=== PATIENT | female | born 1975 | race Caucasian/White ===

== ENCOUNTER 2017-01-18 14:18 | Inpatient (IN) | payer OTHER ==
[~2017-01-18] VITALS: Ht 165.1 cm; Wt 85.1 kg
[~2017-01-18 14:18] MED LIST: FOLI-49 PO; PREN-39 PO
[2017-01-18 15:14] VITALS: BP 187/98; PULSE 98; Ht 165.1 cm; Wt 85.1 kg
[2017-01-18 15:35] LABS: ADD SCAN DIFF NO
[2017-01-18 15:40] LABS: BASOPHILS % 0.3 % (0.0-2.0); EOSINOPHILS % 0.2 % (0.0-7.0); HEMATOCRIT 32.6 % (37.0-47.0); HEMOGLOBIN 11.6 g/dl (12.0-16.0); LYMPHOCYTES # 1.6 10^3/ul (0.8-2.9); LYMPHOCYTES % 18.9 % (15.0-51.0); MEAN CORPUSCULAR HEMOGLOBIN 33.3 pg (29.0-33.0); MEAN CORPUSCULAR HGB CONC 35.6 g/dl (32.0-37.0); MEAN CORPUSCULAR VOLUME 93.7 fl (82.0-101.0); MEAN PLATELET VOLUME 11.1 fl (7.4-10.4); MONOCYTE # 0.5 10^3/ul (0.3-0.9); MONOCYTES % 5.8 % (0.0-11.0); NEUTROPHIL # 6.4 10^3/ul (1.6-7.5); NEUTROPHILS % 74.5 % (39.0-77.0); PLATELET COUNT 223 10^3/UL (140-415); RED BLOOD COUNT 3.48 10^6/ul (4.20-5.40); RED CELL DISTRIBUTION WIDTH 13.7 % (11.5-14.5); WHITE BLOOD COUNT 8.6 10^3/ul (4.8-10.8)
[2017-01-18 15:45] LABS: ADD UMIC YES; UR ASCORBIC ACID 40 mg/dL (NEGATIVE); UR BACTERIA FEW /HPF (NONE SEEN); UR BILIRUBIN (Dip) NEGATIVE (NEGATIVE); UR BLOOD (Dip) NEGATIVE (NEGATIVE); UR CLARITY SLIGHTLY CLOUDY (CLEAR); UR COLOR AMBER (YELLOW); UR GLUCOSE (Dip) NEGATIVE (NEGATIVE); UR KETONES (Dip) NEGATIVE (NEGATIVE); UR LEUKOCYTE ESTERASE (Dip) 1+ Leu/ul (NEGATIVE); UR MUCUS FEW /HPF (NONE SEEN); UR NITRITE (Dip) NEGATIVE (NEGATIVE); UR RBC 8 /HPF (0-5); UR SPECIFIC GRAVITY (Dip) 1.025 (1.003-1.030); UR SQUAMOUS EPITHELIAL CELL FEW /HPF (FEW); UR TOTAL PROTEIN (Dip) 1+ mg/dl (NEGATIVE); UR UROBILINOGEN (Dip) 1+ mg/dL (NEGATIVE)
[2017-01-18 15:55] LABS: INR 0.91; PARTIAL THROMBOPLASTIN TIME 25.7 Sec (25.0-35.0); PROTIME 12.3 Sec (12.2-14.2)
[2017-01-18 15:59] LABS: ALBUMIN 3.9 g/dl (3.3-4.9); ALBUMIN/GLOBULIN RATIO 1.39; BILIRUBIN,INDIRECT 0.3 mg/dl (0-1.1); BILIRUBIN,TOTAL 0.3 mg/dl (0.2-1.3); CALCIUM 9.1 mg/dl (8.4-10.2); CREATININE 0.92 mg/dl (0.44-1.00); POTASSIUM 4.1 mmol/L (3.5-5.1); TOTAL PROTEIN 6.7 g/dl (6.1-8.1); URIC ACID 6.6 mg/dl (3.1-7.9)
--- NOTE | 2017-01-18 16:05 | RADRPT ---
PROCEDURE: OB ultrasound for biophysical profile CLINICAL INDICATION: Biophysical profile. . TECHNIQUE: Multiple sonographic images of the pelvis were obtained. Transabdominal views are obta ined. COMPARISON: 10/02/2016 FINDINGS: Single intrauterine gestation. Presentation: Cephalic. Placenta: Anterior. No evidence of placental abruption. No evidence of placenta previa. breathing movement = 2/2 tone = 2/2 motion = 2/2 JANETH = 2/2 JANETH = 11.4 cm heart rate: 144 beats per minute IMPRESSION: Single intrauterine gestation. Biophysical profile 03/06 RPTAT: AADD .Lito Peña MD, MD Date Time Electronically viewed and signed by .Lito Peña MD, on 01/18/2017 16:05 .B/
--- NOTE | 2017-01-18 16:11 | RADRPT ---
PROCEDURE: Obstetrical ultrasound greater than 14 weeks CLINICAL INDICATION: induced hypertension TECHNIQUE: Real time sonographic imaging of the gravid uterus is performed transabdominally and mu ltiple static fagan scale and Doppler images are submitted for review as are measurements. The image s are reviewed on the PACS. COMPARISON: No relevant exams are available FINDINGS: There is a single living intrauterine gestation in cephalic presentation. The heart beat is estimated at 159 bpm. The measurements are as follows: BPD:9.33 cm HC:34.00 cm AC:33.87 cm FL:7.24 cm Estimated gestational age is 38 weeks. The estimated date of delivery is 02/01/2017. The estimated weight is 3290 grams. Placenta is anterior and grade2. There is no evidence of placenta previa or abruption. The amniotic fluid index is normal estimated at 11.4 cm. RPTAT:HJJR IMPRESSION: 1. Single viable intrauterine gestation in cephalic presentation estimated at 38 weeks with the primitivo mated date of delivery 02/01/2017. 2. Estimated weight 3290 g. Physician Terrell Date Time Electronically viewed and signed by Physician Terrell on 01/18/2017 16:10 /
[2017-01-18] MEDS ORDERED: LACTATED RINGER'S 1,000 ML IV SCH (17:06)
[2017-01-18] MEDS ORDERED: OXYTOCIN 30 UNITS/LR 500 ML IV SCH ×2 (17:30→23:54)
[2017-01-18] MEDS ORDERED: CARBOPROST 250 MCG INJ IM PRN (17:30)
[2017-01-18] MEDS ORDERED: OXYTOCIN 30 UNITS/LR 500 ML IV PRN (17:30)
[2017-01-18] MEDS ORDERED: CEFAZOLIN 2 GM/50 ML (PMX) 50 ML IV SCH (17:30)
[2017-01-18] MEDS ORDERED: METHYLERGONOVINE 0.2 MG INJ IM PRN (17:30)
[2017-01-18] MEDS ORDERED: MISOPROSTOL 200 MCG TAB PR PRN (17:30)
[2017-01-18] MEDS ORDERED: LACTATED RINGER'S 500 ML IV ONE (18:51)
[2017-01-18] MEDS ORDERED: FAMOTIDINE 20 MG INJ IV ONE (19:00)
[2017-01-18] MEDS ORDERED: CITRIC ACID/SODIUM CITRATE 15 ML CUP PO ONE (19:00)
[2017-01-18] MEDS ORDERED: METOCLOPRAMIDE 10 MG INJ IV ONE (19:00)
[2017-01-18] MEDS ORDERED: OXYTOCIN 30 UNITS/LR 500 ML IV ONE ×2 (19:30→20:10)
[2017-01-18] MEDS ORDERED: morphine SULFATE/PF (10 MG/10 ML) INJ ONE (19:30)
[2017-01-18] MEDS ORDERED: FENTAnyl 50 MCG/ML VIAL ONE (19:30)
[2017-01-18] MEDS ORDERED: ONDANSETRON 4 MG INJ ONE (19:57)
[2017-01-18] MEDS ORDERED: MIDAZOLAM 1 MG/ML 2 ML INJ ONE (19:59)
[2017-01-18] MEDS ORDERED: LABETALOL HCL 20MG INJ ONE (20:15)
[2017-01-18] MEDS ORDERED: FENTAnyl 50 MCG/ML VIAL IV PRN (20:30)
[2017-01-18] MEDS ORDERED: HYDROmorphONE 1 MG/ML SYG IV PRN ×2 (20:30)
[2017-01-18] MEDS ORDERED: HYDROmorphONE (0.2 MG/ML) 10ML SYG IV PRN (20:30)
[2017-01-18] MEDS ORDERED: PROCHLORPERAZINE 10 MG INJ IV PRN ×2 (20:30)
[2017-01-18] MEDS ORDERED: NALOXONE (0.4 MG/ML) INJ IV PRN (20:30)
[2017-01-18] MEDS ORDERED: KETOROLAC 30 MG INJ IV PRN (20:30)
[2017-01-18] MEDS ORDERED: ONDANSETRON 4 MG INJ IV PRN ×2 (20:30)
[2017-01-18] MEDS ORDERED: ZOLPIDEM 5 MG TAB PO PRN (20:30)
[2017-01-18] MEDS ORDERED: DIPHENHYDRAMINE 50 MG INJ IV PRN ×2 (20:30)
[2017-01-18] MEDS ORDERED: MEPERIDINE 25 MG INJ IV PRN (20:30)
--- NOTE | 2017-01-18 20:48 | OPR ---
Operative Report Planned Procedure Procedure date Jan 18, 2017 Procedure Description Under satisfactory spinal anesthesia, the patient was prepped and draped and placed in a supine position, tilted to the left. Pfannenstiel incision was made , carried through the subcutaneous tissue. Bleeders brought under control with electrocautery. Fascia incised to the length of the incision. Rectus muscles from the fascia, divided midline. Peritoneum exposed, entered through a transverse incision. Exploration of abdomen revealed gravid uterus. Bladder flap was developed. Transverse incision was made in the lower segment of the uterus. Amniotic sac ruptured.bluntly amniotic fluid noted and was clear. Nasal oropharyngeal suction was performed. The baby was handed to the team for immediate attention. The placenta was delivered manually intact. Uterine cavity was cleaned with wet sponge and drainage established. Uterus closed in 2 layers using 0 chromic cat gut in continuous fashion. Peritoneal cavity irrigated with warm saline. Sponge, needle and instrument count reported to be correct. Abdominal peritoneum closed with 0 chromic catgut continuously. Rectus muscle approximated with the same suture.. Fascia closed with viclyl No 1 and skin closed with hakan. Estimated blood loss 6 t0 700. cc.. Post-Procedure Findings: Live Baby male, Apgars 9 and 9], weight 6 lb and 13 oz, position longitudinal vertex presentation . Physician Certification I, the undersigned physician, hereby certify that I have discussed the procedure described in this consent form with this patient (or the patient's legal representative phlebotomy services), including: * The risk and benefits of the procedure; * Any adverse reactions that may reasonably be expected to occur; * Any alternative efficacious methods of treatment which may be medically viable ; * The potential problems that may occur during recuperation; * Potential for blood transfusion and associated risks/benefits; and * Any research or economic interest I may have regarding this treatment. I further certify that the patient/legally responsible person was encouraged to ask question and that all questions were answered. ALANNAH MICHEL MD Jan 18, 2017 20:48
[2017-01-18] MEDS ORDERED: CA GLUCONATE (GM) 10% 10ML INJ IV PRN (21:30)
[2017-01-18] MEDS ORDERED: MAGNESIUM SULFATE 4 GM/100 ML 100 ML IV SCH (21:30)
[2017-01-18] MEDS: MAGNESIUM SULFATE 20 GM/500 ML 500 ML IV SCH (22:04)
[2017-01-18 23:55] VITALS: BP 179/89; PULSE 75; RESP 18
[2017-01-19] VITALS (20 sets, daily range): BP systolic 135–174; BP diastolic 72–105; PULSE 71–93; RESP 18–20
[2017-01-19] MEDS ORDERED: OXYTOCIN 30 UNITS/LR 500 ML IV PRN
[2017-01-19] MEDS ORDERED: LANOLIN 7 GM TUBE TOP PRN
[2017-01-19] MEDS ORDERED: METHYLERGONOVINE 0.2 MG TAB PO PRN
[2017-01-19] MEDS ORDERED: CARBOPROST 250 MCG INJ IM PRN
[2017-01-19] MEDS ORDERED: NA PHOSPHATE/BIPHOS 133 ML ENEMA PR PRN
[2017-01-19] MEDS ORDERED: ACETAMINOPHEN 500 MG TAB PO PRN
[2017-01-19] MEDS ORDERED: MISOPROSTOL 200 MCG TAB PR PRN
[2017-01-19] MEDS ORDERED: METHYLERGONOVINE 0.2 MG INJ IM PRN
--- NOTE | 2017-01-19 00:15 | DELSUM ---
Delivery Summary A-C Datetime Report Generated by CPN: 01/19/2017 00:14 DELIVERY PERSONNEL Counter Supply Worker: Marisela Feng MATERNAL INFORMATION Delivery Anesthesia: Spinal Medications in Delivery: SEE ANESTHESIA RECORD Estimated Blood Loss (ml): 600 Placenta Cultured: No Maternal Complications: Other Other Maternal Complications: MATERNAL HTN LABOR SUMMARY EDC: 01/26/2017 00:00 No. Babies in Womb: 1 Attempted: No Labor Anesthesia: None LABOR INFORMATION Reason for Induction: Not Applicable Oxytocin: N/A Group B Beta Strep: Done, Result Unknown Antibiotics # of Doses: 1 Antibiotics Time of Last Dose: 01/18/2017 19:31 Steroids Given: None Reason Steroids Not Administered: Not Applicable MEMBRANES Membranes Rupture Method: Artificial Rupture of Membranes: 01/18/2017 19:55 Length of Rupture (hr): 0.02 Amniotic Fluid Color: Clear Amniotic Fluid Amount: Moderate Amniotic Fluid Odor: None STAGES OF LABOR Stage 3 hr: 0 Stage 3 min: 3 CSECTION DELIVERY Primary Indication: Repeat Elective Other Primary Indication: ELEVATED . Secondary Indication: N/A CSection Urgency: Elective CSection Incidence: Repeat Labor: No Labor Elective: Elective CSection Incision: Lower Uterine Transverse BABY A INFORMATION Delivery Date/Time: 01/18/2017 19:56 Method of Delivery: Born in Route : No : N/A Forceps: N/A Vacuum Extraction: N/A Shoulder Dystocia : No SHOULDER DYSTOCIA BABY A Infant Delivery Date/Time: 01/18/2017 19:56 PRESENTATION/POSITION BABY A Presentation: Cephalic Cephalic Presentation: Vertex Vertex Position: Left Occipital Anterior Breech Presentation: N/A PLACENTA INFORMATION BABY A Placenta Delivery Time : 01/18/2017 19:59 Placenta Method of Delivery: Manual Removal Placenta Status: Delivered SCORES BABY A Heart Rate 1 min: >100 bpm Resp Effort 1 min: Good Cry Reflex Irritability 1 min: Cough/Sneeze/Pulls Away Muscle Tone 1 min: Active Motion Color 1 min: Body [place], Extremit Blue Resuscitation Effort 1 min: Tactile Stimulation SCORE 1 MIN: 9 Heart Rate 5 min: >100 bpm Resp Effort 5 min: Good Cry Reflex Irritability 5 min: Cough/Sneeze/Pulls Away Muscle Tone 5 min: Active Motion Color 5 min: Body [place], Extremit Blue Resuscitation Effort 5 min: Tactile Stimulation SCORE 5 MIN: 9 INFANT INFORMATION BABY A Gestational Age at Delivery: 38.6 Gestational Status: Early Term- 37- 38.6 Weeks Outcome : Liveborn Infant Condition : Stable Infant Sex: Male IDENTIFICATION/MEDS BABY A ID Band Number: [id number] ID Band Location: Right Leg; Left Arm Sensor Applied: Yes Sensor Number: [id number] Sensor Location : Cord Clamp Vitamin K Given : Not Given Erythromycin Given: Not Given WEIGHT/LENGTH BABY A Infant Birthweight (gm): 3095 Infant Weight (lb): 6 Infant Weight (oz): 13 Infant Length (in): 20.50 Infant Length (cm): 52.07 CORD INFORMATION BABY A No. Cord Vessels: 3 Nuchal Cord : N/A Cord Blood Taken: No Infant Suction: Mouth; Nose ASSESSMENT BABY A Infant Complications: None Physical Findings at Delivery: Within Normal Limits Respirations: Appears Normal Roving Can Tender/ALS Called : No Care By: Kenneth LEON RN Transferred To: Remains with Mother
[2017-01-19] MEDS: MAGNESIUM SULFATE 20 GM/500 ML 500 ML IV SCH ×2 (06:55→18:00)
[2017-01-19 07:37] LABS: ADD SCAN DIFF NO
[2017-01-19 07:54] LABS: BASOPHILS % 0.2 % (0.0-2.0); EOSINOPHILS % 0.2 % (0.0-7.0); HEMATOCRIT 33.9 % (37.0-47.0); HEMOGLOBIN 11.3 g/dl (12.0-16.0); LYMPHOCYTES % 15.9 % (15.0-51.0); MEAN CORPUSCULAR HEMOGLOBIN 31.7 pg (29.0-33.0); MEAN CORPUSCULAR HGB CONC 33.3 g/dl (32.0-37.0); MEAN PLATELET VOLUME 11.5 fl (7.4-10.4); MONOCYTE # 0.4 10^3/ul (0.3-0.9); MONOCYTES % 3.6 % (0.0-11.0); NEUTROPHIL # 9.9 10^3/ul (1.6-7.5); NEUTROPHILS % 79.8 % (39.0-77.0); PLATELET COUNT 199 10^3/UL (140-415); RED BLOOD COUNT 3.57 10^6/ul (4.20-5.40); RED CELL DISTRIBUTION WIDTH 13.8 % (11.5-14.5); WHITE BLOOD COUNT 12.4 10^3/ul (4.8-10.8)
[2017-01-19] MEDS: KETOROLAC 30 MG INJ IV PRN ×2 (07:57→17:49)
--- NOTE | 2017-01-19 10:47 | PN ---
Date/Time of Note Date/Time of Note DATE: 01/19/17 TIME: 10:45 OB Subjective Subjective Subjective Patient denies PIH symptoms. Tolerating clears. Has no ambulated yet. Pain controlled. OB Objective Objective Objective Gen: NAD Abd: I-C/D/I OB Assessment/Plan Other Assessment: POD1 s/p c/b preeclampsia on magnesium -discontinue magnesium 24 hour postop -advance diet as tolerated -encourage ambulation LOIDA THOMAS Jan 19, 2017 10:47
[2017-01-19] MEDS: LACTATED RINGER'S 1,000 ML IV SCH (12:30)
[2017-01-19] MEDS ORDERED: OXYCODONE/ACETAMINOPHEN (5/325) TAB PO PRN (19:37)
[2017-01-19] MEDS: OXYCODONE/ACETAMINOPHEN (5/325) TAB PO PRN (20:21)
[2017-01-19] MEDS: LABETALOL 100 MG TAB PO SCH (22:04)
[2017-01-20] VITALS (15 sets, daily range): BP systolic 105–164; BP diastolic 61–94; PULSE 75–90; RESP 18–20
[2017-01-20] MEDS: IBUPROFEN 600 MG TAB PO PRN (01:06)
[2017-01-20] MEDS: LACTATED RINGER'S 1,000 ML IV SCH (02:00)
[2017-01-20] MEDS: MAGNESIUM SULFATE 20 GM/500 ML 500 ML IV SCH (04:45)
[2017-01-20] MEDS: LABETALOL 100 MG TAB PO SCH ×2 (09:14→21:39)
--- NOTE | 2017-01-20 11:56 | QN ---
Documentation Comment POD#2 is stable s/p MG BP 110/60 Afebrile tolerates diet No VB +Flatus No sign of depression VS stable Gen NAD Abd soft NT ND dressing to be removed Genitalia No blood at perinium --->discharge plan tomorrow --->ambulation JANETTE WU M.D. Jan 20, 2017 11:56
[2017-01-20] MEDS: OXYCODONE/ACETAMINOPHEN (5/325) TAB PO PRN (21:38)
[2017-01-21] VITALS (8 sets, daily range): BP systolic 128–169; BP diastolic 75–99; PULSE 74–84; RESP 18–20
[2017-01-21] MEDS: OXYCODONE/ACETAMINOPHEN (5/325) TAB PO PRN (06:05)
[2017-01-21] MEDS: LABETALOL 100 MG TAB PO SCH ×2 (08:52→20:34)
[2017-01-21] MEDS ORDERED: DIPHTH/TET/ACEL PERTUSS (ADULT) 0.5 ML VIAL IM* ONE (09:00)
[2017-01-21] MEDS: IBUPROFEN 600 MG TAB PO PRN ×2 (12:06→17:29)
--- NOTE | 2017-01-21 13:30 | PD.PPDC ---
[employer] Discharge Instruction Condition Patient Condition: Good Diet Diet: Resume Regular Diet Activity/Restrictions Restrictions: No Exercising No Lifting Follow-up Follow-up with Physician: 2, Day/Days Provider Information: follow up with our OBGYn in 2 days for staple removal Return to clinic for SHUTTLE VAN DRIVER Instructions: Fever greater than 101 THOMAS CHRISTIANSON MD Jan 21, 2017 13:30
--- NOTE | 2017-01-21 13:32 | DS ---
Date/Time of Note Date/Time of Note DATE: 01/21/17 TIME: 13:31 Obstetrical Discharge Record Final Diagnosis Final Diagnosis: Term delivered Other Final Diagnosis pt with repeat c/section and with elevated bp on MGSo4 for 24 hours. on dc home pt asymptomatic and BP wnl Section Section: Repeat Complications Tocolytics: Magnesium Sulfate Condition on Discharge Physical Assessment Voiding: Yes Bowel Movement: Yes Breast: Soft, non-tender Fundus: Firm Abdomen and Incision: CDI-hakan in place Calf Tenderness: No Patient Condition: Stable THOMAS CHRISTIANSON MD Jan 21, 2017 13:32
[2017-01-21] MEDS ORDERED: LABETALOL 100 MG TAB PO ONE (18:30)
[2017-01-22] VITALS (9 sets, daily range): BP systolic 141–183; BP diastolic 67–90; PULSE 68–88; RESP 18–20
[2017-01-22] MEDS: OXYCODONE/ACETAMINOPHEN (5/325) TAB PO PRN (00:09)
[2017-01-22] MEDS: IBUPROFEN 600 MG TAB PO PRN (06:17)
[2017-01-22] MEDS: LABETALOL 100 MG TAB PO SCH ×2 (09:36→22:14)
[2017-01-22] MEDS ORDERED: LABETALOL 100 MG TAB PO ONE (17:00)
[2017-01-22 19:34] LABS: ADD SCAN DIFF NO
[2017-01-22 19:37] LABS: BASOPHILS % 0.1 % (0.0-2.0); EOSINOPHILS # 0.2 10^3/ul (0.0-0.5); EOSINOPHILS % 1.9 % (0.0-7.0); HEMATOCRIT 32.3 % (37.0-47.0); HEMOGLOBIN 10.7 g/dl (12.0-16.0); LYMPHOCYTES # 1.8 10^3/ul (0.8-2.9); LYMPHOCYTES % 20.5 % (15.0-51.0); MEAN CORPUSCULAR HEMOGLOBIN 32.4 pg (29.0-33.0); MEAN CORPUSCULAR HGB CONC 33.1 g/dl (32.0-37.0); MEAN CORPUSCULAR VOLUME 97.9 fl (82.0-101.0); MEAN PLATELET VOLUME 10.5 fl (7.4-10.4); MONOCYTE # 0.5 10^3/ul (0.3-0.9); MONOCYTES % 5.2 % (0.0-11.0); NEUTROPHIL # 6.3 10^3/ul (1.6-7.5); PLATELET COUNT 262 10^3/UL (140-415); WHITE BLOOD COUNT 8.7 10^3/ul (4.8-10.8)
[2017-01-22 19:54] LABS: ALBUMIN 3.8 g/dl (3.3-4.9); ALBUMIN/GLOBULIN RATIO 1.26; BILIRUBIN,INDIRECT 0.2 mg/dl (0-1.1); BILIRUBIN,TOTAL 0.2 mg/dl (0.2-1.3); CALCIUM 9.1 mg/dl (8.4-10.2); CREATININE 0.77 mg/dl (0.44-1.00); POTASSIUM 4.4 mmol/L (3.5-5.1); TOTAL PROTEIN 6.8 g/dl (6.1-8.1)
[2017-01-23] VITALS (7 sets, daily range): BP systolic 140–175; BP diastolic 76–100; PULSE 71–86; RESP 17–18
[2017-01-23] MEDS: IBUPROFEN 600 MG TAB PO PRN (01:24)
[2017-01-23] MEDS: LABETALOL 100 MG TAB PO SCH (09:14)
[2017-01-23] MEDS: OXYCODONE/ACETAMINOPHEN (5/325) TAB PO PRN (09:20)
--- NOTE | 2017-01-23 09:58 | HP ---
Date/Time of Note Date/Time of Note DATE: 01/23/17 TIME: 08:32 OB - History Hx of Present Free Text/Dictation Laboratory Tests Test 01/22/17 19:15 White Blood Count 8.710^3/ul Red Blood Count 3.3010^6/ul Hemoglobin 10.7g/dl Hematocrit 32.3% Mean Corpuscular Volume 97.9fl Mean Corpuscular Hemoglobin 32.4pg Mean Corpuscular Hemoglobin Concent 33.1g/dl Red Cell Distribution Width 14.0% Platelet Count 29820^3/UL Mean Platelet Volume 10.5fl Neutrophils % 72.0% Lymphocytes % 20.5% Monocytes % 5.2% Eosinophils % 1.9% Basophils % 0.1% Nucleated Red Blood Cells % 0.0/100WBC Neutrophils # 6.310^3/ul Lymphocytes # 1.810^3/ul Monocytes # 0.510^3/ul Eosinophils # 0.210^3/ul Basophils # 0.010^3/ul Nucleated Red Blood Cells # 0.010^3/ul Sodium Level 136mmol/L Potassium Level 4.4mmol/L Chloride Level 106mmol/L Carbon Dioxide Level 23mmol/L Anion Gap 11 Blood Urea Nitrogen 15mg/dl Creatinine 0.77mg/dl Glucose Level 93mg/dl Calcium Level 9.1mg/dl Total Bilirubin 0.2mg/dl Direct Bilirubin 0.00mg/dl Indirect Bilirubin 0.2mg/dl Aspartate Amino Transf (AST/SGOT) 55IU/L Alanine Aminotransferase (ALT/SGPT) 66IU/L Alkaline Phosphatase 128IU/L Total Protein 6.8g/dl Albumin 3.8g/dl Globulin 3.00g/dl Albumin/Globulin Ratio 1.26 Current Medications Medications (Trade) Dose Ordered Sig/Simi Route PRN Reason Start Time Stop Time Status Last Admin Dose Admin Lactated Ringer's 1,000 ml @ 125 mls/hr Q8H IV 01/18/17 17:06 01/18/17 23:58 DC 01/18/17 17:22 Cefazolin Sodium/ Dextrose 50 ml @ 100 mls/hr ONCE IV 01/18/17 17:30 01/18/17 23:58 DC Oxytocin/Lactated Ringer's 500 ml @ 125 mls/hr ONCE IV 01/18/17 17:30 01/18/17 23:58 DC 01/18/17 21:30 Oxytocin/Lactated Ringer's 500 ml @ 0 mls/hr ONCE PRN IV For Hemorrhage Management 01/18/17 17:30 01/18/17 23:58 DC Methylergonovine Maleate (Methergine) 0.2 mg ONCE PRN IM VAGINAL BLEEDING 01/18/17 17:30 01/18/17 23:58 DC Carboprost Tromethamine (Hemabate) 250 mcg ONCE PRN IM VAGINAL BLEEDING 01/18/17 17:30 01/18/17 23:58 DC Misoprostol 1000 mcg 1,000 mcg ONCE PRN LA VAGINAL BLEEDING 01/18/17 17:30 01/18/17 23:58 DC Lactated Ringer's (Lr) 500 ml @ 1,000 mls/hr Q30M ONCE IV 01/18/17 18:51 01/18/17 19:20 DC Citric Acid/ Sodium Citrate (Bicitra) 30 ml PRE-PROCEDURE ONCE PO 01/18/17 19:00 01/18/17 19:01 DC Famotidine (Pepcid Iv) 20 mg pre-procedure ONCE IV 01/18/17 19:00 01/18/17 19:01 DC Metoclopramide HCl 10 mg 10 mg ONCE ONCE IV 01/18/17 19:00 01/18/17 19:01 DC Oxytocin/Lactated Ringer's 500 ml @ ud STK-MED ONCE IV 01/18/17 19:30 01/18/17 19:31 DC Morphine Sulfate (Duramorph) 10 mg STK-MED ONCE .ROUTE 01/18/17 19:30 01/18/17 19:31 DC Fentanyl (Sublimaze) 100 mcg STK-MED ONCE .ROUTE 01/18/17 19:30 01/18/17 19:31 DC Ondansetron HCl (Zofran Inj) 4 mg STK-MED ONCE .ROUTE 01/18/17 19:57 01/18/17 19:58 DC Midazolam HCl 2 mg 2 mg STK-MED ONCE .ROUTE 01/18/17 19:59 01/18/17 20:00 DC Oxytocin/Lactated Ringer's 500 ml @ ud STK-MED ONCE IV 01/18/17 20:10 01/18/17 20:11 DC Hydromorphone HCl (Dilaudid (Rec)) 0.4 mg PACU ORDER PRN IV PAIN 01/18/17 20:30 01/18/17 23:58 DC Fentanyl (Sublimaze) 25 mcg PACU ORDER PRN IV PAIN 01/18/17 20:30 01/18/17 23:58 DC Ketorolac Tromethamine (Toradol) 30 mg PACU ORDER PRN IV PAIN 01/18/17 20:30 01/18/17 23:58 DC 01/18/17 22:04 Ondansetron HCl (Zofran Inj) 4 mg PACU ORDER PRN IV NAUSEA AND/OR VOMITING 01/18/17 20:30 01/18/17 23:58 DC Prochlorperazine (Compazine Inj) 5 mg PACU ORDER PRN IV NAUSEA AND/OR VOMITING 01/18/17 20:30 01/18/17 23:58 DC Meperidine HCl (Demerol) 25 mg PACU ORDER PRN IV POST-OP RIGORS 01/18/17 20:30 01/18/17 23:58 DC Diphenhydramine HCl (Benadryl) 25 mg PACU ORDER PRN IV PRURITUS 01/18/17 20:30 01/18/17 23:58 DC Naloxone HCl (Narcan) 0.1 mg Q2M PRN IV FOR RESP RATE 8 OR LESS 01/18/17 20:30 01/19/17 20:29 DC Ketorolac Tromethamine (Toradol) 30 mg Q6H PRN IV PAIN 01/18/17 20:30 01/19/17 20:29 DC 01/19/17 17:49 Hydromorphone HCl (Dilaudid) 0.2 mg Q3H PRN IV PAIN LEVEL 1-5 01/18/17 20:30 01/19/17 20:29 DC Hydromorphone HCl (Dilaudid) 0.4 mg Q3H PRN IV PAIN LEVEL 6-10 01/18/17 20:30 01/19/17 20:29 DC 01/19/17 12:29 Diphenhydramine HCl (Benadryl) 25 mg Q6H PRN IV ITCHING 01/18/17 20:30 01/19/17 20:29 DC Ondansetron HCl (Zofran Inj) 4 mg Q6H PRN IV NAUSEA AND/OR VOMITING 01/18/17 20:30 01/19/17 20:29 DC Prochlorperazine (Compazine Inj) 10 mg ONCE PRN IV NAUSEA AND/OR VOMITING 01/18/17 20:30 01/19/17 20:29 DC Zolpidem Tartrate (Ambien) 5 mg HS MAY REPEAT X 1 PRN PO INSOMNIA 01/18/17 20:30 01/19/17 20:29 DC Miscellaneous Information (* Miscellaneous Pharmacy Order) Duramorph: 0.2 mg Spi... GIVEN XX 01/18/17 20:30 01/18/17 23:58 DC Labetalol HCl 20 mg 20 mg STK-MED ONCE .ROUTE 01/18/17 20:15 01/18/17 20:16 DC Magnesium Sulfate 100 ml @ 200 mls/hr ONCE IV 01/18/17 21:30 01/18/17 21:59 DC 01/18/17 21:31 Magnesium Sulfate (Magnesium Sulfate 20 Gm/500 ml) 500 ml @ 50 mls/hr Q10H IV 01/18/17 21:02 01/20/17 10:16 DC 01/20/17 04:45 Calcium Gluconate 1 gm 1 gm ONCE PRN IV FOR MAGNESIUM TOXICITY 01/18/17 21:30 Lactated Ringer's 1,000 ml @ 125 mls/hr Q8H IV 01/18/17 23:54 01/20/17 11:50 DC 01/20/17 02:00 Oxytocin/Lactated Ringer's 500 ml @ 125 mls/hr Q4H IV 01/18/17 23:54 01/19/17 07:53 DC 01/19/17 04:53 Methylergonovine Maleate (Methergine) 0.2 mg Q6H PRN PO VAGINAL BLEEDING 01/19/17 00:00 Oxycodone/ Acetaminophen (Percocet (5/ 325)) 1 tab Q4H PRN PO PAIN LEVEL 4-6 01/19/17 19:37 Oxycodone/ Acetaminophen (Percocet (5/ 325)) 2 tab Q4H PRN PO PAIN LEVEL 7-10 01/19/17 19:37 01/22/17 00:09 Simethicone (Mylicon) 160 mg Q8H PRN PO DISTENSION/GAS/BLOATING 01/19/17 00:00 01/19/17 20:20 Sodium Biphosphate/ Sodium Phosphate (Fleet Enema) 133 ml DAILY PRN LA CONSTIPATION 01/19/17 00:00 Lanolin (Zml-M-Frxpbp) 1 applic BEDSIDE MEDICATION PRN TOP BEDSIDE FOR GLENDY TO NIPPLES 01/19/17 00:00 01/19/17 06:55 Diphtheria/ Tetanus/Acell Pertussis 0.5 ml 0.5 ml ONCE ONCE IM* 01/21/17 09:00 01/21/17 09:01 DC 01/21/17 12:08 Oxytocin/Lactated Ringer's 500 ml @ 0 mls/hr ONCE PRN IV For Hemorrhage Management 01/19/17 00:00 Methylergonovine Maleate (Methergine) 0.2 mg ONCE PRN IM VAGINAL BLEEDING 01/19/17 00:00 Carboprost Tromethamine (Hemabate) 250 mcg ONCE PRN IM VAGINAL BLEEDING 01/19/17 00:00 Misoprostol (Cytotec) 1,000 mcg ONCE PRN LA VAGINAL BLEEDING 01/19/17 00:00 Ibuprofen (Motrin) 600 mg Q6H PRN PO PAIN 01/19/17 19:37 01/23/17 01:24 Acetaminophen (Tylenol Tab) 500 mg Q6H PRN PO PAIN AND OR ELEVATED TEMP 01/19/17 00:00 Labetalol HCl (Normodyne) 200 mg BID PO 01/19/17 22:00 01/21/17 18:58 DC 01/21/17 08:52 Labetalol HCl (Normodyne) 100 mg ONCE ONCE PO 01/21/17 18:30 01/21/17 18:40 DC 01/21/17 18:43 Labetalol HCl (Normodyne) 300 mg BID PO 01/21/17 21:00 01/22/17 22:14 Labetalol HCl (Normodyne) 100 mg ONCE ONCE PO 01/22/17 17:00 01/22/17 17:05 DC 01/22/17 17:10 This is a history and physical examination of Ying Arreola who had his repeat section on 01/18/2017 She is a 40 years old 6 para 5 whose last delivery was done by section Her EDC is January 22, 2017 which makes her 39 weeks and 3 days She has a history of -induced hypertension and ending in a section When she came to triage and about 3:00 in the afternoon on 01/18/2017 her initial blood pressure was 191/109 and she was in labor. Her blood pressure gradually came down to 187/90 8-1/2 an hour later was 173/88 After explaining her condition need for section patient was prepared for this procedure Meanwhile blood work was done and ultrasound studies were performed. On lab studies her urinalysis was normal, hemoglobin 11.6, hematocrit 32.6 , her platelet count was 223,000. Blood type was O+ On her ultrasound study her biophysical profile was 8 of 8, JANETH was 11.4 cm and estimated weight was 3290 g, placenta was anterior with no evidence of abruptio placenta or low placenta. On physical examination, she was a well-developed well-nourished lady at term and in labor, Her ear nose throat appears to be normal, no neck vein distention no thyromegaly no lymph node enlargement and evidence her body. , her chest was clear to auscultation her precaution no rales, heart normal sinus rhythm no murmur. breasts were soft free of masses nipples were normal As I mentioned her blood pressure was gradually coming down toward normal Her general vital signs except for somewhat elevated blood pressure , were normal, pulse rate 98, respiration 18, and temperature 98.2. Extremities were normal, her knee-jerk reflex was 1+ no ankle edema, pelvic exam was normal cervix was about 1. fingertip and fairly thin, no vaginal bleeding Past Family/Social History * Past Medical, Surgical, Family and Obstetric Histories reviewed from chart. OB Admission Exam Vital Signs Vital Signs Vital Signs Date Time Temp Pulse Resp B/P Pulse Ox O2 Delivery O2 Flow Rate FiO2 01/23/17 04:10 98.2 79 18 155/85 Room Air 01/19/17 18:10 98 21 Last 72 hours Lab Results CBC & BMP 01/22/17 19:15 Liver Function Test 01/22/17 19:15 Alanine Aminotransferase (ALT/SGPT) 66 Albumin 3.8 Alkaline Phosphatase 128 H Aspartate Amino Transf (AST/SGOT) 55 H Direct Bilirubin 0.00 Total Protein 6.8 ALANNAH MICHEL MD Jan 23, 2017 08:42
--- NOTE | 2017-01-23 11:33 | CONS ---
Date/Time of Note Date/Time of Note DATE: 01/23/17 TIME: 11:23 Assessment/Plan Assessment/Plan Chief Complaint/Hosp Course Assessment and plan 1. induced hypertension Patient has been placed on labetalol, this time I will add Norvasc to her medication regimen Encourage low-salt diet 2. Follow up with [facility] Encourage ambulation Patient may be discharged home at medical standpoint if her systolic blood pressure is below 140 Prescription has been provided Problems: Consultation Date/Type/Reason Admit Date/Time Jan 18, 2017 at 16:53 Date of Consultation: Jan 23, 2017 Type of Consultation: Medical Reason for Consultation Elevated blood pressure Referring Provider: ALANNAH MICHEL MD Hx of Present Illness There is a 43-year-old lady with past medical history of - induced hypertension who was admitted to [facility] team due for elective C- section.. Patient was successful and patient gave to Live [employer] male, Apgars 9 and 9], weight 6 lb and 13 oz, position longitudinal vertex presentation . Patient has been treated with labetalol during this course of hospitalization for her blood pressure although this morning she was found to have systolic blood pressure of 170s and medical team was consulted for further evaluation. Patient denies of any chest pain shortness of breath nausea vomiting diarrhea or any other discomfort she denies of any abdominal discomfort. She denies of any swelling in her extremities Const: Negative for fever, chills, weight gain or weight loss, fatigue, or diaphoresis Eyes : No pain discharge or redness or change in visual acuity ENT: No pain, sore throat, congestion, congestion, dysphagia or discharge Respiratory: No shortness of breath, cough, sputum, wheezing, or pleuritic pain Cardiovascular: No chest pain, palpitation, PND, or edema GI : no change in appetite, abdominal pain, nausea, vomiting, diarrhea, constipation, or change in the color his stool Genitourinary: No dysuria, hematuria, flank pain , discharge or CVA tenderness Musculoskeletal: No joint pain, back pain, neck pain, restricted range of motion in neck or joints Skin: No rash, bruising or hives Neuro: No headache, dizziness, syncope, seizure, focal weakness Endocrine: No polyuria, polydipsia, temperature intolerance Psych: No hallucination, depression, anxiety or suicidal ideation Past Medical History -induced hypertension Past Surgical History Family History Significant Family History: other (Noncontributory) Social History Denies of history of smoking, alcohol or illicit drugs Smoking Status: Never smoker Exam/Review of Systems Vital Signs Vitals Vital Signs Date Time Temp Pulse Resp B/P Pulse Ox O2 Delivery O2 Flow Rate FiO2 01/23/17 04:10 98.2 79 18 155/85 Room Air 01/19/17 18:10 98 21 Exam General: The patient is well-developed, Not in acute distress. HEENT: Atraumatic, normocephalic. The pupils are equal and round . Neck: Supple with full range of motion. Chest: Normal expansion of the thorax during inspiration Lungs: Clear to auscultation bilaterally Heart: Normal S1-S2, Regular rhythm and rate. Abdomen: Soft , nontender, nondistended , bowel sounds are present. Surgical site is dry and clean Extremities: Normal to inspection, no edema no cyanosis Neurologic: Normal mental status,The patient is awake, alert and oriented . Results Result Diagram: 01/22/17191401/22/171914 Results 24 hrs Laboratory Tests Test 01/22/17 19:15 White Blood Count 8.7 # Red Blood Count 3.30 L Hemoglobin 10.7 L Hematocrit 32.3 L Mean Corpuscular Volume 97.9 Mean Corpuscular Hemoglobin 32.4 Mean Corpuscular Hemoglobin Concent 33.1 Red Cell Distribution Width 14.0 Platelet Count 262 # Mean Platelet Volume 10.5 H Neutrophils % 72.0 Lymphocytes % 20.5 Monocytes % 5.2 Eosinophils % 1.9 Basophils % 0.1 Nucleated Red Blood Cells % 0.0 Neutrophils # 6.3 Lymphocytes # 1.8 Monocytes # 0.5 Eosinophils # 0.2 Basophils # 0.0 Nucleated Red Blood Cells # 0.0 Sodium Level 136 Potassium Level 4.4 Chloride Level 106 Carbon Dioxide Level 23 Anion Gap 11 Blood Urea Nitrogen 15 Creatinine 0.77 Glucose Level 93 Calcium Level 9.1 Total Bilirubin 0.2 Direct Bilirubin 0.00 Indirect Bilirubin 0.2 Aspartate Amino Transf (AST/SGOT) 55 H Alanine Aminotransferase (ALT/SGPT) 66 Alkaline Phosphatase 128 H Total Protein 6.8 Albumin 3.8 Globulin 3.00 Albumin/Globulin Ratio 1.26 Medications Medications Current Medications Calcium Gluconate (Ca Gluc) 1 gm ONCE PRN IV FOR MAGNESIUM TOXICITY; Start 01/18 at 21:30 Methylergonovine Maleate (Methergine) 0.2 mg Q6H PRN PO VAGINAL BLEEDING; Start 01/19/17 at 00:00 Oxycodone/ Acetaminophen (Percocet (5/ 325)) 1 tab Q4H PRN PO PAIN LEVEL 4-6; Start 01/19/17 at 19:37 Oxycodone/ Acetaminophen (Percocet (5/ 325)) 2 tab Q4H PRN PO PAIN LEVEL 7-10 Last administered on 01/23/17 09:20; Admin Dose 2 TAB; Start 01/19/17 at 19:37 Simethicone (Mylicon) 160 mg Q8H PRN PO DISTENSION/GAS/BLOATING Last administered on 01/19/17 20:20; Admin Dose 160 MG; Start 01/19/17 at 00:00 Sodium Biphosphate/ Sodium Phosphate 133 ml 133 ml DAILY PRN [place] CONSTIPATION; Start 01/19/17 at 00:00 Oxytocin/Lactated Ringer's 500 ml @ 0 mls/hr ONCE PRN IV For Hemorrhage Management; Start 01/19/17 at 00:00 Methylergonovine Maleate (Methergine) 0.2 mg ONCE PRN IM VAGINAL BLEEDING; Start 01/19/17 at 00:00 Carboprost Tromethamine (Hemabate) 250 mcg ONCE PRN IM VAGINAL BLEEDING; Start 01/19/17 at 00:00 Misoprostol (Cytotec) 1,000 mcg ONCE PRN [place] VAGINAL BLEEDING; Start 01/19/17 at 00:00 Ibuprofen (Motrin) 600 mg Q6H PRN PO PAIN Last administered on 01/23/17 01:24 ; Admin Dose 600 MG; Start 01/19/17 at 19:37 Acetaminophen (Tylenol Tab) 500 mg Q6H PRN PO PAIN AND OR ELEVATED TEMP; Start 01/19/17 at 00:00 Labetalol HCl (Normodyne) 300 mg BID PO Last administered on 01/23/17 09:14; Admin Dose 300 MG; Start 01/21/17 at 21:00 Amlodipine Besylate (Norvasc) 5 mg BID PO ; Start 01/23/17 at 11:30; Status SOHAIL MCCABE MD Jan 23, 2017 11:33
[2017-01-23] MEDS ORDERED: AMLODIPINE 5 MG TAB PO SCH (12:00)
--- NOTE | 2017-01-24 12:13 | QN ---
Documentation Comment January 23 2017 OB discharge note This patient is a 40 years old 6 para 5 who had a previous delivery by section .she experienced elevation of the blood pressure during that . Apparently she did not have adequate care during this came to triage in labor on 18 of January with blood pressure of 191/109 upon arrival and about 15 minutes later went down to 187/90 and further down to 173/ 88 She was having contractions and her blood pressure was l gradually come down approaching normal limit. She underwent a repeat low cervical section on that day. the was male, with score of 9 in 1 minute and 9 in 5 minutes . Post delivery her blood pressure start rising,for this reason she was placed in mag sulfate which is controlling ed her blood pressure Due to fairly acceptable blood pressure her Mg Sulphate dced. . 2 days after delivery due to elevation of the blood pressure she was placed on labetalol 300 mg 3 times daily . Due to continuation and actually worsening level of elevated blood pressure, internal medicine consult was requested requested, and Norvasc was suggested for her hypertension However patient refused to stay in the hospital any further and on January 23 she left the hospital AMA . We did give her 2 prescription for labetalol as well as the pain and recommended to see her physician very soon for continuation of her care and management of her blood pressure. Current Medications Medications (Trade) Dose Ordered Sig/Simi Route PRN Reason Start Time Stop Time Status Last Admin Dose Admin Lactated Ringer's 1,000 ml @ 125 mls/hr Q8H IV 01/18/17 17:06 01/18/17 23:58 DC 01/18/17 17:22 Cefazolin Sodium/ Dextrose 50 ml @ 100 mls/hr ONCE IV 01/18/17 17:30 01/18/17 23:58 DC Oxytocin/Lactated Ringer's 500 ml @ 125 mls/hr ONCE IV 01/18/17 17:30 01/18/17 23:58 DC 01/18/17 21:30 Oxytocin/Lactated Ringer's 500 ml @ 0 mls/hr ONCE PRN IV For Hemorrhage Management 01/18/17 17:30 01/18/17 23:58 DC Methylergonovine Maleate (Methergine) 0.2 mg ONCE PRN IM VAGINAL BLEEDING 01/18/17 17:30 01/18/17 23:58 DC Carboprost Tromethamine (Hemabate) 250 mcg ONCE PRN IM VAGINAL BLEEDING 01/18/17 17:30 01/18/17 23:58 DC Misoprostol 1000 mcg 1,000 mcg ONCE PRN [place] VAGINAL BLEEDING 01/18/17 17:30 01/18/17 23:58 DC Lactated Ringer's (Lr) 500 ml @ 1,000 mls/hr Q30M ONCE IV 01/18/17 18:51 01/18/17 19:20 DC Citric Acid/ Sodium Citrate (Bicitra) 30 ml PRE-PROCEDURE ONCE PO 01/18/17 19:00 01/18/17 19:01 DC Famotidine (Pepcid Iv) 20 mg pre-procedure ONCE IV 01/18/17 19:00 01/18/17 19:01 DC Metoclopramide HCl 10 mg 10 mg ONCE ONCE IV 01/18/17 19:00 01/18/17 19:01 DC Oxytocin/Lactated Ringer's 500 ml @ ud STK-MED ONCE IV 01/18/17 19:30 01/18/17 19:31 DC Morphine Sulfate (Duramorph) 10 mg STK-MED ONCE .ROUTE 01/18/17 19:30 01/18/17 19:31 DC Fentanyl (Sublimaze) 100 mcg STK-MED ONCE .ROUTE 01/18/17 19:30 01/18/17 19:31 DC Ondansetron HCl (Zofran Inj) 4 mg STK-MED ONCE .ROUTE 01/18/17 19:57 01/18/17 19:58 DC Midazolam HCl 2 mg 2 mg STK-MED ONCE .ROUTE 01/18/17 19:59 01/18/17 20:00 DC Oxytocin/Lactated Ringer's 500 ml @ ud STK-MED ONCE IV 01/18/17 20:10 01/18/17 20:11 DC Hydromorphone HCl (Dilaudid (Rec)) 0.4 mg PACU ORDER PRN IV PAIN 01/18/17 20:30 01/18/17 23:58 DC Fentanyl (Sublimaze) 25 mcg PACU ORDER PRN IV PAIN 01/18/17 20:30 01/18/17 23:58 DC Ketorolac Tromethamine (Toradol) 30 mg PACU ORDER PRN IV PAIN 01/18/17 20:30 01/18/17 23:58 DC 01/18/17 22:04 Ondansetron HCl (Zofran Inj) 4 mg PACU ORDER PRN IV NAUSEA AND/OR VOMITING 01/18/17 20:30 01/18/17 23:58 DC Prochlorperazine (Compazine Inj) 5 mg PACU ORDER PRN IV NAUSEA AND/OR VOMITING 01/18/17 20:30 01/18/17 23:58 DC Meperidine HCl (Demerol) 25 mg PACU ORDER PRN IV POST-OP RIGORS 01/18/17 20:30 01/18/17 23:58 DC Diphenhydramine HCl (Benadryl) 25 mg PACU ORDER PRN IV PRURITUS 01/18/17 20:30 01/18/17 23:58 DC Naloxone HCl (Narcan) 0.1 mg Q2M PRN IV FOR RESP RATE 8 OR LESS 01/18/17 20:30 01/19/17 20:29 DC Ketorolac Tromethamine (Toradol) 30 mg Q6H PRN IV PAIN 01/18/17 20:30 01/19/17 20:29 DC 01/19/17 17:49 Hydromorphone HCl (Dilaudid) 0.2 mg Q3H PRN IV PAIN LEVEL 1-5 01/18/17 20:30 01/19/17 20:29 DC Hydromorphone HCl (Dilaudid) 0.4 mg Q3H PRN IV PAIN LEVEL 6-10 01/18/17 20:30 01/19/17 20:29 DC 01/19/17 12:29 Diphenhydramine HCl (Benadryl) 25 mg Q6H PRN IV ITCHING 01/18/17 20:30 01/19/17 20:29 DC Ondansetron HCl (Zofran Inj) 4 mg Q6H PRN IV NAUSEA AND/OR VOMITING 01/18/17 20:30 01/19/17 20:29 DC Prochlorperazine (Compazine Inj) 10 mg ONCE PRN IV NAUSEA AND/OR VOMITING 01/18/17 20:30 01/19/17 20:29 DC Zolpidem Tartrate (Ambien) 5 mg HS MAY REPEAT X 1 PRN PO INSOMNIA 01/18/17 20:30 01/19/17 20:29 DC Miscellaneous Information (* Miscellaneous Pharmacy Order) Duramorph: 0.2 mg Spi... GIVEN XX 01/18/17 20:30 01/18/17 23:58 DC Labetalol HCl 20 mg 20 mg STK-MED ONCE .ROUTE 01/18/17 20:15 01/18/17 20:16 DC Magnesium Sulfate 100 ml @ 200 mls/hr ONCE IV 01/18/17 21:30 01/18/17 21:59 DC 01/18/17 21:31 Magnesium Sulfate (Magnesium Sulfate 20 Gm/500 ml) 500 ml @ 50 mls/hr Q10H IV 01/18/17 21:02 01/20/17 10:16 DC 01/20/17 04:45 Calcium Gluconate 1 gm 1 gm ONCE PRN IV FOR MAGNESIUM TOXICITY 01/18/17 21:30 01/23/17 19:35 DC Lactated Ringer's 1,000 ml @ 125 mls/hr Q8H IV 01/18/17 23:54 01/20/17 11:50 DC 01/20/17 02:00 Oxytocin/Lactated Ringer's 500 ml @ 125 mls/hr Q4H IV 01/18/17 23:54 01/19/17 07:53 DC 01/19/17 04:53 Methylergonovine Maleate (Methergine) 0.2 mg Q6H PRN PO VAGINAL BLEEDING 01/19/17 00:00 01/23/17 19:35 DC Oxycodone/ Acetaminophen (Percocet (5/ 325)) 1 tab Q4H PRN PO PAIN LEVEL 4-6 01/19/17 19:37 01/23/17 19:35 DC Oxycodone/ Acetaminophen (Percocet (5/ 325)) 2 tab Q4H PRN PO PAIN LEVEL 7-10 01/19/17 19:37 01/23/17 19:35 DC 01/23/17 09:20 Simethicone (Mylicon) 160 mg Q8H PRN PO DISTENSION/GAS/BLOATING 01/19/17 00:00 01/23/17 19:35 DC 01/19/17 20:20 Sodium Biphosphate/ Sodium Phosphate (Fleet Enema) 133 ml DAILY PRN [place] CONSTIPATION 01/19/17 00:00 01/23/17 19:35 DC Lanolin (Blb-X-Pnaela) 1 applic BEDSIDE MEDICATION PRN TOP BEDSIDE FOR GLENDY TO NIPPLES 01/19/17 00:00 01/23/17 19:35 DC 01/19/17 06:55 Diphtheria/ Tetanus/Acell Pertussis 0.5 ml 0.5 ml ONCE ONCE IM* 01/21/17 09:00 01/21/17 09:01 DC 01/21/17 12:08 Oxytocin/Lactated Ringer's 500 ml @ 0 mls/hr ONCE PRN IV For Hemorrhage Management 01/19/17 00:00 01/23/17 19:35 DC Methylergonovine Maleate (Methergine) 0.2 mg ONCE PRN IM VAGINAL BLEEDING 01/19/17 00:00 01/23/17 19:35 DC Carboprost Tromethamine (Hemabate) 250 mcg ONCE PRN IM VAGINAL BLEEDING 01/19/17 00:00 01/23/17 19:35 DC Misoprostol (Cytotec) 1,000 mcg ONCE PRN [place] VAGINAL BLEEDING 01/19/17 00:00 01/23/17 19:35 DC Ibuprofen (Motrin) 600 mg Q6H PRN PO PAIN 01/19/17 19:37 01/23/17 19:35 DC 01/23/17 01:24 Acetaminophen (Tylenol Tab) 500 mg Q6H PRN PO PAIN AND OR ELEVATED TEMP 01/19/17 00:00 01/23/17 19:35 DC Labetalol HCl (Normodyne) 200 mg BID PO 01/19/17 22:00 01/21/17 18:58 DC 01/21/17 08:52 Labetalol HCl (Normodyne) 100 mg ONCE ONCE PO 01/21/17 18:30 01/21/17 18:40 DC 01/21/17 18:43 Labetalol HCl (Normodyne) 300 mg BID PO 01/21/17 21:00 01/23/17 19:35 DC 01/23/17 09:14 Labetalol HCl (Normodyne) 100 mg ONCE ONCE PO 01/22/17 17:00 01/22/17 17:05 DC 01/22/17 17:10 Amlodipine Besylate (Norvasc) 5 mg BID PO 01/23/17 12:00 01/23/17 19:35 DC 01/23/17 13:08 ALANNAH MICHEL MD Jan 24, 2017 12:04
== END 2017-01-23 19:00 | disposition home or self-care (01) | DRG 766 ==
LOC: OBT 14:18 → L-D 14:19 → OBT 16:45 → L-D 16:53 → OBG 23:52 → PP1 01-20 21:19
PROC: 10D00Z1 Extraction of Products of Conception, Low, Open Approach (ICD-10-PCS; principal; 2017-01-18 19:15)
PROC: 3E00X4Z Introduction of Serum, Toxoid and Vaccine into Skin and Mucous Membranes, External Approach (ICD-10-PCS; 2017-01-21)
DX: O13.4 Gestational [pregnancy-induced] hypertension without significant proteinuria, complicating childbirth (principal); O34.211 Maternal care for low transverse scar from previous cesarean delivery; Z23 Encounter for immunization; Z3A.38 38 weeks gestation of pregnancy; Z37.0 Single live birth
CPT/HCPCS: 36415; 76815; 76818; 80053; 81001; 83735; 84560; 85025; 85384; 85610; 85730; 86592; 86850; 86900; 86901; 88307; 90715; 94760; 99464; G0463; J0690; J1170; J1885; J2250; J2274; J2405; J2590; J3010; J3475; J7120

== ENCOUNTER 2018-03-13 14:39 | Emergency (ER) | END 2018-03-13 18:01 | disposition home or self-care (01) ==